=== PATIENT | male | born 1950 | race African-American/Black ===

== ENCOUNTER 2016-12-13 01:03 | Emergency (ER) | payer MEDICARE, MEDICAID ==
[~2016-12-13] VITALS: Ht 180.3 cm; Wt 86.0 kg
[~2016-12-13 01:03] MED LIST: ALEVE; ASPI-1159 PO; GABA-529 PO; INSULIN SUBCUT; LISI2.5T47 PO
[2016-12-13] MEDS ORDERED: MORPHINE SULFATE 4 MG/ML CPJ (NOT FOR IM USE) IV STA (02:48)
[2016-12-13] MEDS ORDERED: SODIUM CHLORIDE 0.9% 1,000 ML IV ONE (02:48)
[2016-12-13] MEDS ORDERED: ONDANSETRON HCL 4MG/2ML VIAL IV STA (02:48)
[2016-12-13 03:34] LABS: EOSINOPHILS % 3.5 % (0.0-5.0); HEMATOCRIT. 31.9 % (42.0-52.0); LYMPHOCYTES % 23.4 % (20.0-50.0); MEAN CORPUSCULAR HEMOGLOBIN 30.7 pg (28.0-32.0); MEAN CORPUSCULAR VOLUME 88.5 fL (80.0-94.0); MEAN PLATELET VOLUME 8.8 fl (7.4-10.4); MONOCYTES % 5.9 % (2.0-8.0); NEUTROPHILS % 66.2 % (40.0-76.0); PLATELET 190 x1000/uL (130-400); RED CELL DISTRIBUTION WIDTH 14.4 % (11.6-14.6)
[2016-12-13 03:54] LABS: CARBON DIOXIDE 27 mEq/L (21-32); CHLORIDE 105 mEq/L (98-107); TROPONIN I < 0.02 ng/mL (0.00-0.04)
[2016-12-13] MEDS ORDERED: HYDROCODONE/ACETAMINOPHEN 5/325MG TABLET PO ONE (06:15)
[2016-12-13 06:34] VITALS: BP 162/80
[2016-12-13] MEDS ORDERED: ONDANSETRON 4MG ODT ONE (06:50)
[2016-12-13] MEDS ORDERED: ONDANSETRON 4MG ODT PO ONE (07:00)
== END 2016-12-13 06:46 | disposition home or self-care (01) ==
LOC: ER 02:55
DX: R10.9 Unspecified abdominal pain (principal); E11.9 Type 2 diabetes mellitus without complications; I10 Essential (primary) hypertension
CPT/HCPCS: 36415; 71010; 74176; 80053; 83690; 84484; 85025; 93005; 96361; 96374; 96375; 99285; J2270; J2405; J7030; Q0162